=== PATIENT | female | born 1945 | race Caucasian/White ===

== ENCOUNTER 2017-09-08 15:30 | Emergency (ER) | payer MEDICARE ==
[2017-09-08 16:41] LABS: Bilirubin Negative (Negative); Blood, Urine Negative (Negative); Glucose, Urine (Dipstick) Negative (Negative); Leukocyte Small (Negative); Nitrite Negative (Negative); Protein, Urine (Dipstick) Negative (Neg-Trace); Specific Gravity, Urine 1.015 (1.005-1.030); pH, Urine 6.5 (5.0-9.0)
[2017-09-08 16:43] LABS: Clarity Hazy (Clear)
[2017-09-08 16:47] LABS: Bacteria/HPF 1+ HPF (None Seen); RBC/HPF None Seen HPF (0-3)
== END 2017-09-08 17:20 | disposition left against medical advice (07) ==
LOC: SCSER 15:30
DX: N30.00 Acute cystitis without hematuria (principal); M54.12 Radiculopathy, cervical region; I48.91 Unspecified atrial fibrillation; E11.9 Type 2 diabetes mellitus without complications; E78.5 Hyperlipidemia, unspecified; I10 Essential (primary) hypertension; F32.9 Major depressive disorder, single episode, unspecified; Z79.899 Other long term (current) drug therapy; Z79.84 Long term (current) use of oral hypoglycemic drugs
CPT/HCPCS: 81003; 81015; 87086; 99284